=== PATIENT | male | born 2000 | race Two or more races ===

== ENCOUNTER 2024-02-19 13:51 | Emergency (ER) | payer SELFPAY ==
[2024-02-19 15:22] LABS: BASOPHILS ABSOLUTE AUTO 0.04 K/uL (0.00-0.20); BASOPHILS PERCENT AUTO 0.2 % (0.0-1.0); EOSINOPHILS ABSOLUTE AUTO 0.01 K/uL (0.00-0.45); HEMATOCRIT 43.6 % (42.0-52.0); IMMATURE GRAN ABSOLUTE AUTO 0.07 K/uL (0.00-0.05); IMMATURE GRAN PERCENT AUTO 0.3 % (0.0-0.4); LYMPHOCYTES ABSOLUTE AUTO 0.85 K/uL (1.00-4.80); LYMPHOCYTES PERCENT AUTO 4.1 % (24.0-44.0); MEAN CORPUSCULAR HEMOGLOBIN 29.1 pg (28.0-32.0); MEAN CORPUSCULAR HGB CONC 34.4 g/dL (32.0-36.0); MEAN CORPUSCULAR VOLUME 84.5 fL (83.0-99.0); MEAN PLATELET VOLUME 9.6 fL (9.4-12.4); MONOCYTES ABSOLUTE AUTO 1.38 K/uL (0.00-0.80); MONOCYTES PERCENT AUTO 6.7 % (0.0-8.0); NEUTROPHILS ABSOLUTE AUTO 18.14 K/uL (1.80-7.70); NEUTROPHILS PERCENT AUTO 88.7 % (41.0-71.0); PLATELET COUNT,PLT 310 K/uL (150-400); RED BLOOD CELL COUNT 5.16 M/uL (4.52-5.90); WHITE BLOOD CELL COUNT,WBC 20.49 K/uL (3.9-11.3)
[2024-02-19] MEDS: Ondansetron 4 MG/2 ML SDV IVPUSH ONE (15:33)
[2024-02-19] MEDS: cefTRIAXone 1 GM in Sodium Chloride 0.9% 50 ML IV ONE (15:33)
[2024-02-19] MEDS: Morphine 2 MG/ML SYRINGE IVPUSH ONE (15:34)
[2024-02-19] MEDS: Acetaminophen 500 MG Tab PO ONE (15:34)
[2024-02-19] MEDS: Sodium Chloride 0.9% 1,000 ML IV ONE (15:34)
[2024-02-19] MEDS: Sodium Chloride 0.9% 2.5 ML Syringe FLUSH PRN (15:35)
[2024-02-19] MEDS: Sodium Chloride 0.9% 10 ML Syringe FLUSH PRN (15:35)
[2024-02-19 15:39] LABS: INR 1.06 (0.86-1.11); PTT,PARTIAL THROMBOPLSTIN TIME 30.3 SEC (23.9-30.7)
[2024-02-19 15:51] LABS: ALBUMIN 4.3 g/dL (3.4-5.0); BILIRUBIN TOTAL 0.7 mg/dL (0.2-1.0); CALCIUM 9.1 mg/dL (8.5-10.1); CARBON DIOXIDE,CO2 27.5 mmol/L (21.0-32.0); EST CRCL DRUG DOSING (CG) 99.08 mL/min; POTASSIUM,K 3.4 mmol/L (3.5-5.1); PROTEIN TOTAL,TP 8.6 g/dL (6.4-8.2)
[2024-02-19 15:58] LABS: LACTIC ACID 1.2 mmol/L (0.4-2.0)
[2024-02-19 17:25] LABS: APPEARANCE,URINE CLEAR; BILIRUBIN,URINE NEGATIVE (NEGATIVE); COLOR,URINE YELLOW; GLUCOSE,URINE NEGATIVE (NEGATIVE); KETONES,URINE NEGATIVE (NEGATIVE); LEUKOCYTE ESTERASE,URINE MODERATE (NEGATIVE); NITRITE,URINE NEGATIVE (NEGATIVE); OCCULT BLOOD,URINE MODERATE (NEGATIVE); PROTEIN,URINE NEGATIVE (NEGATIVE); UROBILINOGEN,URINE 0.2 EU/dL (<2.0)
[2024-02-19 17:28] LABS: C. TRACHOMATIS BY PCR NOT DETECTED; N. GONORRHOEAE BY PCR NOT DETECTED
[2024-02-19 17:35] LABS: EPITHELIAL CELLS,URINE RARE (NONE-FEW)
[2024-02-19 17:36] LABS: BACTERIA,URINE RARE (NEGATIVE)
[2024-02-19] MEDS: Iopamidol 755 MG/ML 500 ML Multipack Bottle IVPUSH STA (19:16)
== END 2024-02-19 20:25 | disposition home or self-care (01) ==
LOC: MW.ED 13:51
DX: N12 Tubulo-interstitial nephritis, not specified as acute or chronic (principal); Z79.899 Other long term (current) drug therapy
CPT/HCPCS: 36415; 74177; 76870; 80053; 81001; 83605; 83690; 85025; 85610; 85730; 87040; 87491; 87591; 93976; 96365; 96375; 99284; A9270; J0696; J2270; J2405; J3490; J7030; Q9967

== ENCOUNTER 2024-02-21 05:22 | Emergency (ER) | payer SELFPAY ==
[2024-02-21] MEDS: Aluminum Hydroxide/Magnesium Hydroxide/Simethicone XS Susp 30 ML Cup PO ONE (05:39)
[2024-02-21] MEDS: Sodium Chloride 0.9% 2.5 ML Syringe FLUSH PRN (05:40)
[2024-02-21] MEDS: Sodium Chloride 0.9% 10 ML Syringe FLUSH PRN (05:40)
[2024-02-21] MEDS: Sodium Chloride 0.9% 1,000 ML IV STA (05:44)
[2024-02-21] MEDS: Morphine 4 MG/ML Syringe IVPUSH ONE ×2 (05:46→07:09)
[2024-02-21 05:55] LABS: BASOPHILS ABSOLUTE AUTO 0.03 K/uL (0.00-0.20); BASOPHILS PERCENT AUTO 0.3 % (0.0-1.0); EOSINOPHILS PERCENT AUTO 0.9 % (0.0-6.0); HEMATOCRIT 40.8 % (42.0-52.0); HEMOGLOBIN 13.8 g/dL (14.0-18.0); IMMATURE GRAN ABSOLUTE AUTO 0.03 K/uL (0.00-0.05); IMMATURE GRAN PERCENT AUTO 0.3 % (0.0-0.4); LYMPHOCYTES ABSOLUTE AUTO 1.34 K/uL (1.00-4.80); MEAN CORPUSCULAR HEMOGLOBIN 29.1 pg (28.0-32.0); MEAN CORPUSCULAR HGB CONC 33.8 g/dL (32.0-36.0); MEAN CORPUSCULAR VOLUME 85.9 fL (83.0-99.0); MEAN PLATELET VOLUME 9.8 fL (9.4-12.4); MONOCYTES ABSOLUTE AUTO 0.32 K/uL (0.00-0.80); MONOCYTES PERCENT AUTO 2.9 % (0.0-8.0); NEUTROPHILS ABSOLUTE AUTO 9.39 K/uL (1.80-7.70); NEUTROPHILS PERCENT AUTO 83.6 % (41.0-71.0); PLATELET COUNT,PLT 285 K/uL (150-400); RED BLOOD CELL COUNT 4.75 M/uL (4.52-5.90); WHITE BLOOD CELL COUNT,WBC 11.21 K/uL (3.9-11.3)
[2024-02-21] MEDS ORDERED: Morphine 4 MG/ML Syringe IVPUSH ONE (05:57)
[2024-02-21 06:00] LABS: APPEARANCE,URINE CLEAR; BILIRUBIN,URINE NEGATIVE (NEGATIVE); COLOR,URINE YELLOW; GLUCOSE,URINE >=1000 mg/dL (NEGATIVE); KETONES,URINE 40 mg/dL (NEGATIVE); LEUKOCYTE ESTERASE,URINE TRACE (NEGATIVE); NITRITE,URINE NEGATIVE (NEGATIVE); OCCULT BLOOD,URINE NEGATIVE (NEGATIVE); PROTEIN,URINE NEGATIVE (NEGATIVE); UROBILINOGEN,URINE 0.2 EU/dL (<2.0)
[2024-02-21] MEDS: Morphine 2 MG/ML SYRINGE ONE (06:02)
[2024-02-21 06:08] LABS: BACTERIA,URINE FEW (NEGATIVE); MUCUS,URINE LIGHT (NONE-MOD); RBC,URINE 0-1 (0-2/HPF); SQUAMOUS EPITHELIAL CELLS,UR FEW
[2024-02-21] MEDS: Ketorolac 30 MG/ML SDV IVPUSH ONE (06:22)
[2024-02-21] MEDS: Morphine 2 MG/ML SYRINGE IVPUSH ONE (06:22)
[2024-02-21 06:31] LABS: A/G RATIO 0.9 (0.9-1.6); ALANINE AMINOTRANSFERASE,ALT 42 IU/L (14-63); ALBUMIN 3.8 g/dL (3.4-5.0); ALKALINE PHOSPHATASE 92 U/L (46-116); ASPARTATE AMNIOTRANSFERASE,AST 31 IU/L (15-37); BILIRUBIN TOTAL 0.5 mg/dL (0.2-1.0); BLOOD UREA NITROGEN,BUN 13 mg/dL (7.0-18.0); CALCIUM 8.7 mg/dL (8.5-10.1); CHLORIDE,CL 103 mmol/L (98-107); CREATININE 0.8 mg/dL (0.8-1.3); EST CRCL DRUG DOSING (CG) 123.85 mL/min; GLUCOSE RANDOM 115 mg/dL (74-106); LIPASE 28 U/L (16-77); POTASSIUM,K 3.9 mmol/L (3.5-5.1); SODIUM,NA 141 mmol/L (136-148)
[2024-02-21] MEDS: Iopamidol 755 MG/ML 500 ML Multipack Bottle IVPUSH ONE (06:31)
[2024-02-21 06:32] LABS: ESTIMATED GFR 127 mL/min (>60)
[2024-02-21 06:54] LABS: LACTIC ACID 1.1 mmol/L (0.4-2.0)
[2024-02-21] MEDS: droPERidol 5 MG/2 ML SDV IVPUSH ONE (08:17)
== END 2024-02-21 11:32 | disposition home or self-care (01) ==
LOC: MW.ED 05:22
DX: N12 Tubulo-interstitial nephritis, not specified as acute or chronic (principal); Z79.899 Other long term (current) drug therapy; Z75.8 Other problems related to medical facilities and other health care
CPT/HCPCS: 36415; 71045; 74177; 76705; 80053; 81001; 83605; 83690; 84484; 85025; 93005; 96361; 96374; 96375; 96376; 99284; A9270; J1790; J1885; J2270; J3490; J7030; Q9967